=== PATIENT | male | born 1985 ===

== ENCOUNTER 2023-09-15 12:37 | Outpatient (CLI) | payer OTHER | END 2023-09-15 23:59 | disposition EMS.NT | LOC: EMS 12:37 | DX: R42 Dizziness and giddiness (principal) ==

== ENCOUNTER 2023-10-02 10:09 | Outpatient (CLI) | payer OTHER ==
--- NOTE | 2023-10-02 12:03 | MRI Report ---
Knee LT WO CLINICAL INFORMATION: 37 years of age, Male, L KNEE PAIN. COMPARISON: None Technique: Multisequence, multiplanar MRI of the knee was performed without intravenous contrast. FINDINGS: Menisci: In the medial meniscus, there is an oblique tear at the posterior horn and body junction (5: 21). No extrusion of the medial meniscus body. The lateral meniscus is unremarkable. Cruciate ligaments: The anterior and posterior cruciate ligaments are intact. MCL/LCL: The MCL is unremarkable. The biceps femoris tendon is unremarkable. The fibular collateral ligament is unremarkable. The iliotibial band is intact. The popliteus muscle and tendon also appear intact. Extensor mechanism: The quadricep tendon is unremarkable. Mild tendinosis of the patella tendon. Patellofemoral joint: Alignment within the patellofemoral joint is normal. The patellofemoral ligame nts are intact. Small area of low grade chondral loss in the median ridge. Cartilage of the trochlea is unremarkable. Cartilage and bone: In the medial compartment, the cartilage is well-maintained. In the lateral sunshine rtment, there is full-thickness chondral defect in the weightbearing portion of the femoral condyle, measuring 1.5 cm, with marked marrow edema. No acute fracture. Miscellaneous: Small knee effusion. Small popliteal cyst. No intra-articular bodies are identified. N ormal muscle signal intensity and morphology. No vascular anomaly. IMPRESSION: 1.Tear of the medial meniscus. 2.1.5 cm full-thickness chondral defect in the weightbearing portion of the lateral femoral condyle. 3.Mild chondrosis of the patellofemoral compartment. Reviewed by: Kenna Mcneal MD on 10/02/2023 12:02 PM PDT Approved by: Kenna Mcneal MD on 10/02/2023 12:02 PM PDT Station ID: [id number]
== END 2023-10-02 10:10 | disposition home or self-care (01) ==
LOC: DI 10:09
PROVIDERS: ATTEND Nurse Practitioner Family
DX: S83.242A Other tear of medial meniscus, current injury, left knee, initial encounter (principal); M89.9 Disorder of bone, unspecified